=== PATIENT | female | born 1965 | race Two or more races ===

== ENCOUNTER 2018-09-17 19:02 | Emergency (ER) | payer SELFPAY ==
--- NOTE | 2018-09-17 19:46 | EDM.PDOC ---
ED HPI GENERAL MEDICAL PROBLEM - General Chief Complaint: Skin Complaint Stated Complaint: SPOKE TO NURSE Time Seen by Provider: 09/17/18 19:41 - History of Present Illness INITIAL COMMENTS - FREE TEXT/NARRATIVE: HISTORY AND PHYSICAL: History of present illness: Patient's 53-year-old female with history of urticaria presents with a concern of urticaria she has yet identified the food allergy or other allergen that may be causing this patient denies any difficulty swallowing or breathing no other complaints Review of systems: As per history of present illness and below otherwise all systems reviewed and negative. Past medical history: As per history of present illness and as reviewed below otherwise noncontributory. Surgical history: As per history of present illness and as reviewed below otherwise noncontributory. Social history: No reported history of drug or alcohol abuse. Family history: As per history of present illness and as reviewed below otherwise noncontributory. Physical exam: HEENT: Atraumatic, normocephalic, pupils reactive, negative for conjunctival pallor or scleral icterus, mucous membranes moist, throat clear, neck supple, nontender, trachea midline. Lungs: Clear to auscultation, breath sounds equal bilaterally, chest nontender. Heart: S1S2, regular, negative for clicks, rubs, or JVD. Abdomen: Soft, nondistended, nontender. Negative for masses or hepatosplenomegaly. Negative for costovertebral tenderness. Pelvis: Stable nontender. Genitourinary: Deferred. Rectal: Deferred. Extremities: Atraumatic, negative for cords or calf pain. Neurovascular unremarkable. Neuro: Awake, alert, oriented. Cranial nerves II through XII unremarkable. Cerebellum unremarkable. Motor and sensory unremarkable throughout. Exam nonfocal. Skin: Patient is urticaria noted over upper chest and upper extremities Diagnostics: None Therapeutics: Solu-Medrol 125 mg IM Impression: #1 urticaria Definitive disposition and diagnosis as appropriate pending reevaluation and review of above. - Related Data Allergies Allergy/AdvReac Type Severity Reaction Status Date / Time No Known Allergies Allergy Verified 09/17/18 19:39 Home Meds: Home Meds . [No Known Home Meds] 09/17/18 [History] ED ROS GENERAL - Review of Systems Review Of Systems: ROS reveals no pertinent complaints other than HPI. ED EXAM, SKIN/RASH Exam: See Below (See dictation) Course - Vital Signs Last Recorded V/S: Last Vital Signs Temp 36.8 C 09/17/18 19:30 Pulse 75 09/17/18 19:30 Resp 18 09/17/18 19:30 BP 145/74 H 09/17/18 19:30 Pulse Ox 96 09/17/18 19:30 Departure - Departure Time of Disposition: 19:46 Disposition: Home, Self-Care 01 Condition: Good Clinical Impression: Urticaria - Discharge Information Referrals: PCP,Unknown [Primary Care Provider] - Additional Instructions: The following information is given to patients seen in the emergency department who are being discharged to home. This information is to outline your options for follow-up care. We provide all patients seen in our emergency department with a follow-up referral. The need for follow-up, as well as the timing and circumstances, are variable depending upon the specifics of your emergency department visit. If you don't have a primary care physician on staff, we will provide you with a referral. We always advise you to contact your personal physician following an emergency department visit to inform them of the circumstance of the visit and for follow-up with them and/or the need for any referrals to a consulting specialist. The emergency department will also refer you to a specialist when appropriate. This referral assures that you have the opportunity for followup care with a specialist. All of these measure are taken in an effort to provide you with optimal care, which includes your followup. Under all circumstances we always encourage you to contact your private physician who remains a resource for coordinating your care. When calling for followup care, please make the office aware that this follow-up is from your recent emergency room visit. If for any reason you are refused follow-up, please contact the [facility] emergency department at and asked to speak to the emergency department charge nurse. Medrol as prescribed continue Benadryl as directed follow primary medical doctor as needed as discussed and return as needed as discussed
[2018-09-17] MEDS ORDERED: methylPREDNISolone Sodium Succinate 125 MG/2 ML SDV IM ONE (19:47)
== END 2018-09-17 20:05 | disposition home or self-care (01) ==
LOC: MW.ED 19:02
DX: L50.9 Urticaria, unspecified (principal)
CPT/HCPCS: 96372; 99282; J2930

== ENCOUNTER 2023-09-14 15:57 | Emergency (ER) | payer OTHER ==
[2023-09-14] MEDS: Ketorolac 30 MG/ML SDV IVPUSH ONE (16:25)
[2023-09-14] MEDS: Lisinopril 10 MG Tab PO ONE (16:26)
[2023-09-14] MEDS: Sodium Chloride 0.9% 1,000 ML IV ONE (16:26)
[2023-09-14] MEDS: Sodium Chloride 0.9% 2.5 ML Syringe FLUSH PRN (16:26)
[2023-09-14] MEDS: Sodium Chloride 0.9% 10 ML Syringe FLUSH PRN (16:27)
[2023-09-14 16:39] LABS: BASOPHILS ABSOLUTE AUTO 0.09 K/uL (0.00-0.20); BASOPHILS PERCENT AUTO 0.9 % (0.0-1.0); EOSINOPHILS ABSOLUTE AUTO 0.24 K/uL (0.00-0.45); EOSINOPHILS PERCENT AUTO 2.4 % (0.0-6.0); HEMATOCRIT 42.5 % (37.0-47.0); HEMOGLOBIN 14.8 g/dL (12.0-16.0); IMMATURE GRAN ABSOLUTE AUTO 0.02 K/uL (0.00-0.05); IMMATURE GRAN PERCENT AUTO 0.2 % (0.0-0.4); LYMPHOCYTES ABSOLUTE AUTO 3.13 K/uL (1.00-4.80); LYMPHOCYTES PERCENT AUTO 30.9 % (24.0-44.0); MEAN CORPUSCULAR HEMOGLOBIN 30.8 pg (28.0-32.0); MEAN CORPUSCULAR HGB CONC 34.8 g/dL (32.0-36.0); MEAN CORPUSCULAR VOLUME 88.5 fL (83.0-99.0); MEAN PLATELET VOLUME 10.6 fL (9.4-12.3); MONOCYTES ABSOLUTE AUTO 0.67 K/uL (0.00-0.80); MONOCYTES PERCENT AUTO 6.6 % (0.0-8.0); NEUTROPHILS ABSOLUTE AUTO 5.97 K/uL (1.80-7.70); PLATELET COUNT,PLT 312 K/uL (150-400); WHITE BLOOD CELL COUNT,WBC 10.12 K/uL (3.9-11.3)
[2023-09-14 18:01] LABS: A/G RATIO 0.9 (0.9-1.6); ALANINE AMINOTRANSFERASE,ALT 49 IU/L (14-63); ALBUMIN 3.7 g/dL (3.4-5.0); ALKALINE PHOSPHATASE 116 U/L (46-116); ASPARTATE AMNIOTRANSFERASE,AST 39 IU/L (15-37); BILIRUBIN TOTAL 0.5 mg/dL (0.2-1.0); BLOOD UREA NITROGEN,BUN 21 mg/dL (7.0-18.0); CALCIUM 9.1 mg/dL (8.5-10.1); CARBON DIOXIDE,CO2 23.1 mmol/L (21.0-32.0); CHLORIDE,CL 105 mmol/L (98-107); EST CRCL DRUG DOSING (CG) 45.12 mL/min; GLUCOSE RANDOM 119 mg/dL (74-106); POTASSIUM,K 4.1 mmol/L (3.5-5.1); PROTEIN TOTAL,TP 7.7 g/dL (6.4-8.2); SODIUM,NA 141 mmol/L (136-145); TSH ULTRASENSITIVE 1.05 uIU/mL (0.36-3.74)
[2023-09-14 18:02] LABS: ESTIMATED GFR 66 mL/min (>60)
== END 2023-09-14 18:33 | disposition home or self-care (01) ==
LOC: MW.ED 15:57
DX: I10 Essential (primary) hypertension (principal)
CPT/HCPCS: 36415; 71045; 80053; 84443; 84484; 85025; 93005; 96361; 96374; 99285; A9270; J1885; J3490; J7030; 93010; 99284

== ENCOUNTER 2023-09-18 19:55 | Emergency (ER) | payer OTHER ==
[2023-09-18] MEDS: Albuterol/Ipratropium 3.0-0.5 MG/3 ML Neb Soln NEB ONE (20:05)
[2023-09-18] MEDS: Aspirin 81 MG Tab.Chew PO ONE (20:05)
[2023-09-18] MEDS: Ondansetron 4 MG/2 ML SDV IVPUSH ONE (20:06)
[2023-09-18] MEDS: Sodium Chloride 0.9% 10 ML Syringe FLUSH PRN (20:06)
[2023-09-18] MEDS: Sodium Chloride 0.9% 2.5 ML Syringe FLUSH PRN (20:06)
[2023-09-18] MEDS: Nitroglycerin 0.4 MG Tab.SL SL PRN (20:07)
[2023-09-18 20:15] LABS: BASOPHILS ABSOLUTE AUTO 0.08 K/uL (0.00-0.20); BASOPHILS PERCENT AUTO 0.6 % (0.0-1.0); EOSINOPHILS ABSOLUTE AUTO 0.26 K/uL (0.00-0.45); EOSINOPHILS PERCENT AUTO 1.8 % (0.0-6.0); HEMATOCRIT 41.9 % (37.0-47.0); HEMOGLOBIN 14.5 g/dL (12.0-16.0); IMMATURE GRAN ABSOLUTE AUTO 0.05 K/uL (0.00-0.05); IMMATURE GRAN PERCENT AUTO 0.4 % (0.0-0.4); LYMPHOCYTES PERCENT AUTO 28.3 % (24.0-44.0); MEAN CORPUSCULAR HEMOGLOBIN 30.5 pg (28.0-32.0); MEAN CORPUSCULAR HGB CONC 34.6 g/dL (32.0-36.0); MEAN PLATELET VOLUME 11.1 fL (9.4-12.3); MONOCYTES ABSOLUTE AUTO 0.77 K/uL (0.00-0.80); MONOCYTES PERCENT AUTO 5.4 % (0.0-8.0); NEUTROPHILS ABSOLUTE AUTO 8.97 K/uL (1.80-7.70); NEUTROPHILS PERCENT AUTO 63.5 % (41.0-71.0); PLATELET COUNT,PLT 304 K/uL (150-400); RED BLOOD CELL COUNT 4.76 M/uL (4.10-5.30); WHITE BLOOD CELL COUNT,WBC 14.13 K/uL (3.9-11.3)
[2023-09-18 20:35] LABS: INR 0.95 (0.86-1.11); PTT,PARTIAL THROMBOPLSTIN TIME 25.3 SEC (23.9-30.7)
[2023-09-18 20:44] LABS: A/G RATIO 1.1 (0.9-1.6); BILIRUBIN TOTAL 0.4 mg/dL (0.2-1.0); CALCIUM 9.5 mg/dL (8.5-10.1); CARBON DIOXIDE,CO2 23.5 mmol/L (21.0-32.0); EST CRCL DRUG DOSING (CG) 45.12 mL/min; MAGNESIUM 1.9 mg/dL (1.8-2.4); POTASSIUM,K 4.5 mmol/L (3.5-5.1); PROTEIN TOTAL,TP 7.5 g/dL (6.4-8.2)
[2023-09-18] MEDS: Iopamidol 755 MG/ML 500 ML Multipack Bottle IVPUSH ONE (21:43)
[2023-09-19] MEDS: Acetaminophen 500 MG Tab PO ONE (00:20)
== END 2023-09-19 00:48 | disposition home or self-care (01) ==
LOC: MW.ED 19:55
DX: R07.89 Other chest pain (principal); I45.6 Pre-excitation syndrome; R00.2 Palpitations; I10 Essential (primary) hypertension; Z91.011 Allergy to milk products
CPT/HCPCS: 36415; 70450; 71045; 71275; 80053; 83690; 83735; 83880; 84484; 85025; 85610; 85730; 93005; 96374; 99285; A9270; J2405; J3490; Q9967; 93010; 99284; J7620-GY

== ENCOUNTER 2023-09-19 19:51 | Emergency (ER) | payer OTHER ==
[2023-09-19 21:09] LABS: BASOPHILS ABSOLUTE AUTO 0.07 K/uL (0.00-0.20); BASOPHILS PERCENT AUTO 0.6 % (0.0-1.0); EOSINOPHILS PERCENT AUTO 2.6 % (0.0-6.0); HEMATOCRIT 40.9 % (37.0-47.0); HEMOGLOBIN 14.2 g/dL (12.0-16.0); IMMATURE GRAN ABSOLUTE AUTO 0.03 K/uL (0.00-0.05); IMMATURE GRAN PERCENT AUTO 0.3 % (0.0-0.4); LYMPHOCYTES ABSOLUTE AUTO 2.92 K/uL (1.00-4.80); MEAN CORPUSCULAR HEMOGLOBIN 30.5 pg (28.0-32.0); MEAN CORPUSCULAR HGB CONC 34.7 g/dL (32.0-36.0); MEAN CORPUSCULAR VOLUME 87.8 fL (83.0-99.0); MEAN PLATELET VOLUME 11.2 fL (9.4-12.3); MONOCYTES ABSOLUTE AUTO 0.67 K/uL (0.00-0.80); MONOCYTES PERCENT AUTO 5.7 % (0.0-8.0); NEUTROPHILS ABSOLUTE AUTO 7.69 K/uL (1.80-7.70); NEUTROPHILS PERCENT AUTO 65.8 % (41.0-71.0); PLATELET COUNT,PLT 286 K/uL (150-400); RED BLOOD CELL COUNT 4.66 M/uL (4.10-5.30); WHITE BLOOD CELL COUNT,WBC 11.68 K/uL (3.9-11.3)
[2023-09-19 21:36] LABS: A/G RATIO 0.9 (0.9-1.6); ALBUMIN 3.7 g/dL (3.4-5.0); BILIRUBIN TOTAL 0.5 mg/dL (0.2-1.0); CALCIUM 9.1 mg/dL (8.5-10.1); CREATININE 0.8 mg/dL (0.6-1.0); EST CRCL DRUG DOSING (CG) 56.4 mL/min; PROTEIN TOTAL,TP 7.7 g/dL (6.4-8.2)
== END 2023-09-19 22:21 | disposition home or self-care (01) ==
LOC: MW.ED 19:51
DX: R07.89 Other chest pain (principal); I10 Essential (primary) hypertension; Z91.011 Allergy to milk products
CPT/HCPCS: 36415; 71045; 71045-26; 80053; 84484; 85025; 93005; 93010; 99282; 99285

== ENCOUNTER 2023-09-20 21:19 | Emergency (ER) | payer OTHER ==
[2023-09-20 21:55] LABS: BASOPHILS ABSOLUTE AUTO 0.08 K/uL (0.00-0.20); BASOPHILS PERCENT AUTO 0.6 % (0.0-1.0); EOSINOPHILS ABSOLUTE AUTO 0.35 K/uL (0.00-0.45); EOSINOPHILS PERCENT AUTO 2.8 % (0.0-6.0); HEMATOCRIT 41.7 % (37.0-47.0); HEMOGLOBIN 14.5 g/dL (12.0-16.0); IMMATURE GRAN ABSOLUTE AUTO 0.02 K/uL (0.00-0.05); IMMATURE GRAN PERCENT AUTO 0.2 % (0.0-0.4); LYMPHOCYTES ABSOLUTE AUTO 3.84 K/uL (1.00-4.80); LYMPHOCYTES PERCENT AUTO 30.9 % (24.0-44.0); MEAN CORPUSCULAR HEMOGLOBIN 30.6 pg (28.0-32.0); MEAN CORPUSCULAR HGB CONC 34.8 g/dL (32.0-36.0); MEAN PLATELET VOLUME 11.1 fL (9.4-12.3); MONOCYTES ABSOLUTE AUTO 0.73 K/uL (0.00-0.80); MONOCYTES PERCENT AUTO 5.9 % (0.0-8.0); NEUTROPHILS PERCENT AUTO 59.6 % (41.0-71.0); PLATELET COUNT,PLT 301 K/uL (150-400); RED BLOOD CELL COUNT 4.74 M/uL (4.10-5.30); WHITE BLOOD CELL COUNT,WBC 12.42 K/uL (3.9-11.3)
[2023-09-20] MEDS: Albuterol 0.083% 2.5 MG/3 ML Neb Soln NEB ONE (22:06)
[2023-09-20 23:11] LABS: A/G RATIO 0.9 (0.9-1.6); ALBUMIN 3.8 g/dL (3.4-5.0); BILIRUBIN TOTAL 0.3 mg/dL (0.2-1.0); CALCIUM 9.2 mg/dL (8.5-10.1); CARBON DIOXIDE,CO2 22.1 mmol/L (21.0-32.0); CREATININE 1.5 mg/dL (0.6-1.0); EST CRCL DRUG DOSING (CG) 30.08 mL/min; POTASSIUM,K 4.2 mmol/L (3.5-5.1); PROTEIN TOTAL,TP 7.8 g/dL (6.4-8.2)
== END 2023-09-20 23:41 | disposition home or self-care (01) ==
LOC: MW.ED 21:19
DX: N17.9 Acute kidney failure, unspecified (principal); I10 Essential (primary) hypertension; Z91.011 Allergy to milk products; Z86.19 Personal history of other infectious and parasitic diseases; Z75.8 Other problems related to medical facilities and other health care; Z79.899 Other long term (current) drug therapy
CPT/HCPCS: 36415; 71046; 71046-26; 80053; 80061; 83036; 83880; 84443; 84484; 85025; 93005; 93010; 99283; 99285; J7620-GY

== ENCOUNTER 2023-09-26 16:23 | Emergency (ER) | payer OTHER ==
[2023-09-26 17:09] LABS: BASOPHILS PERCENT AUTO 0.7 % (0.0-1.0); EOSINOPHILS PERCENT AUTO 1.5 % (0.0-6.0); HEMATOCRIT 39.5 % (37.0-47.0); HEMOGLOBIN 14.3 g/dL (12.0-16.0); IMMATURE GRAN ABSOLUTE AUTO 0.03 K/uL (0.00-0.05); IMMATURE GRAN PERCENT AUTO 0.2 % (0.0-0.4); LYMPHOCYTES ABSOLUTE AUTO 2.73 K/uL (1.00-4.80); LYMPHOCYTES PERCENT AUTO 20.4 % (24.0-44.0); MEAN CORPUSCULAR HGB CONC 36.2 g/dL (32.0-36.0); MEAN CORPUSCULAR VOLUME 85.5 fL (83.0-99.0); MONOCYTES ABSOLUTE AUTO 0.73 K/uL (0.00-0.80); MONOCYTES PERCENT AUTO 5.4 % (0.0-8.0); NEUTROPHILS ABSOLUTE AUTO 9.62 K/uL (1.80-7.70); NEUTROPHILS PERCENT AUTO 71.8 % (41.0-71.0); PLATELET COUNT,PLT 313 K/uL (150-400); RED BLOOD CELL COUNT 4.62 M/uL (4.10-5.30); WHITE BLOOD CELL COUNT,WBC 13.41 K/uL (3.9-11.3)
[2023-09-26 17:27] LABS: INR 0.98 (0.86-1.11); PTT,PARTIAL THROMBOPLSTIN TIME 28.2 SEC (23.9-30.7)
[2023-09-26] MEDS: Sodium Chloride 0.9% 1,000 ML IV STA (17:33)
[2023-09-26] MEDS: Sodium Chloride 0.9% 2.5 ML Syringe FLUSH PRN (17:33)
[2023-09-26] MEDS: Sodium Chloride 0.9% 10 ML Syringe FLUSH PRN (17:34)
[2023-09-26 17:38] LABS: POTASSIUM,K 3.2 mmol/L (3.5-5.1); TSH ULTRASENSITIVE 0.86 uIU/mL (0.36-3.74)
[2023-09-26 17:46] LABS: CARBON DIOXIDE,CO2 25.1 mmol/L (21.0-32.0)
[2023-09-26 17:47] LABS: A/G RATIO 0.9 (0.9-1.6); ALBUMIN 3.8 g/dL (3.4-5.0); BILIRUBIN TOTAL 0.5 mg/dL (0.2-1.0); CALCIUM 9.2 mg/dL (8.5-10.1); CREATININE 1.3 mg/dL (0.6-1.0); EST CRCL DRUG DOSING (CG) 34.71 mL/min; MAGNESIUM 1.5 mg/dL (1.8-2.4); PROTEIN TOTAL,TP 7.9 g/dL (6.4-8.2)
[2023-09-26] MEDS: Potassium Chloride 20 MEQ Tab.ER PO STA (18:02)
[2023-09-26] MEDS: Magnesium Sulfate/Water 2 GM in Premix Bag 1 BAG IV STA (18:04)
[2023-09-26] MEDS: cefTRIAXone 1 GM in Sodium Chloride 0.9% 50 ML IV STA (19:36)
== END 2023-09-26 19:51 | disposition home or self-care (01) ==
LOC: MW.ED 16:23
DX: I45.6 Pre-excitation syndrome (principal); E87.6 Hypokalemia; E83.42 Hypomagnesemia; N30.00 Acute cystitis without hematuria; I10 Essential (primary) hypertension; Z79.84 Long term (current) use of oral hypoglycemic drugs; Z79.899 Other long term (current) drug therapy; Z91.011 Allergy to milk products
CPT/HCPCS: 36415; 71046; 80053; 83690; 83735; 84443; 84484; 85025; 85610; 85730; 93005; 96361; 96365; 96367; 99285; A9270; J0696; J3475; J3490; J7030; 93010; 99283

== ENCOUNTER 2023-10-02 20:08 | Emergency (ER) | payer OTHER ==
[2023-10-02] MEDS: cloNIDine 0.1 MG Tab PO ONE (20:31)
[2023-10-02] MEDS: Acetaminophen 500 MG Tab PO ONE (20:31)
[2023-10-02 20:33] LABS: BASOPHILS ABSOLUTE AUTO 0.09 K/uL (0.00-0.20); BASOPHILS PERCENT AUTO 0.8 % (0.0-1.0); EOSINOPHILS ABSOLUTE AUTO 0.23 K/uL (0.00-0.45); EOSINOPHILS PERCENT AUTO 2.2 % (0.0-6.0); HEMATOCRIT 36.9 % (37.0-47.0); HEMOGLOBIN 13.1 g/dL (12.0-16.0); IMMATURE GRAN ABSOLUTE AUTO 0.02 K/uL (0.00-0.05); IMMATURE GRAN PERCENT AUTO 0.2 % (0.0-0.4); LYMPHOCYTES ABSOLUTE AUTO 3.02 K/uL (1.00-4.80); LYMPHOCYTES PERCENT AUTO 28.5 % (24.0-44.0); MEAN CORPUSCULAR HEMOGLOBIN 30.8 pg (28.0-32.0); MEAN CORPUSCULAR HGB CONC 35.5 g/dL (32.0-36.0); MEAN CORPUSCULAR VOLUME 86.6 fL (83.0-99.0); MEAN PLATELET VOLUME 10.8 fL (9.4-12.3); MONOCYTES ABSOLUTE AUTO 0.74 K/uL (0.00-0.80); NEUTROPHILS PERCENT AUTO 61.3 % (41.0-71.0); PLATELET COUNT,PLT 282 K/uL (150-400); RED BLOOD CELL COUNT 4.26 M/uL (4.10-5.30)
[2023-10-02 20:59] LABS: ALANINE AMINOTRANSFERASE,ALT 72 IU/L (14-63); ALBUMIN 3.7 g/dL (3.4-5.0); ALKALINE PHOSPHATASE 101 U/L (46-116); ASPARTATE AMNIOTRANSFERASE,AST 37 IU/L (15-37); BILIRUBIN TOTAL 0.3 mg/dL (0.2-1.0); BLOOD UREA NITROGEN,BUN 14 mg/dL (7.0-18.0); CALCIUM 9.2 mg/dL (8.5-10.1); CARBON DIOXIDE,CO2 26.9 mmol/L (21.0-32.0); CHLORIDE,CL 96 mmol/L (98-107); EST CRCL DRUG DOSING (CG) 49.68 mL/min; GLUCOSE RANDOM 106 mg/dL (74-106); POTASSIUM,K 3.5 mmol/L (3.5-5.1); PROTEIN TOTAL,TP 7.3 g/dL (6.4-8.2); SODIUM,NA 134 mmol/L (136-145)
[2023-10-02 21:00] LABS: ESTIMATED GFR 66 mL/min (>60)
== END 2023-10-02 21:36 | disposition home or self-care (01) ==
LOC: MW.ED 20:08
DX: I10 Essential (primary) hypertension (principal); Z91.011 Allergy to milk products; Z79.84 Long term (current) use of oral hypoglycemic drugs; Z79.899 Other long term (current) drug therapy; Z75.8 Other problems related to medical facilities and other health care
CPT/HCPCS: 36415; 80053; 84484; 85025; 99283; A9270; 93005; 93010

== ENCOUNTER 2023-10-17 17:42 | Emergency (ER) | payer OTHER ==
[2023-10-17] MEDS: Acetaminophen 500 MG Tab PO ONE (18:31)
[2023-10-17] MEDS: cloNIDine 0.1 MG Tab PO ONE (18:32)
[2023-10-17 18:51] LABS: BASOPHILS ABSOLUTE AUTO 0.09 K/uL (0.00-0.20); EOSINOPHILS PERCENT AUTO 2.2 % (0.0-6.0); HEMATOCRIT 37.2 % (37.0-47.0); HEMOGLOBIN 12.8 g/dL (12.0-16.0); IMMATURE GRAN ABSOLUTE AUTO 0.01 K/uL (0.00-0.05); IMMATURE GRAN PERCENT AUTO 0.1 % (0.0-0.4); LYMPHOCYTES ABSOLUTE AUTO 2.52 K/uL (1.00-4.80); LYMPHOCYTES PERCENT AUTO 27.6 % (24.0-44.0); MEAN CORPUSCULAR HEMOGLOBIN 30.5 pg (28.0-32.0); MEAN CORPUSCULAR HGB CONC 34.4 g/dL (32.0-36.0); MEAN CORPUSCULAR VOLUME 88.6 fL (83.0-99.0); MEAN PLATELET VOLUME 11.2 fL (9.4-12.3); MONOCYTES ABSOLUTE AUTO 0.58 K/uL (0.00-0.80); MONOCYTES PERCENT AUTO 6.4 % (0.0-8.0); NEUTROPHILS ABSOLUTE AUTO 5.72 K/uL (1.80-7.70); NEUTROPHILS PERCENT AUTO 62.7 % (41.0-71.0); PLATELET COUNT,PLT 258 K/uL (150-400); WHITE BLOOD CELL COUNT,WBC 9.12 K/uL (3.9-11.3)
[2023-10-17 19:16] LABS: A/G RATIO 1.1 (0.9-1.6); ALBUMIN 3.7 g/dL (3.4-5.0); BILIRUBIN TOTAL 0.4 mg/dL (0.2-1.0); CALCIUM 9.1 mg/dL (8.5-10.1); CARBON DIOXIDE,CO2 25.2 mmol/L (21.0-32.0); CREATININE 0.8 mg/dL (0.6-1.0); EST CRCL DRUG DOSING (CG) 59.25 mL/min; POTASSIUM,K 3.9 mmol/L (3.5-5.1); PROTEIN TOTAL,TP 7.2 g/dL (6.4-8.2)
== END 2023-10-17 20:58 | disposition home or self-care (01) ==
LOC: MW.ED 17:42
DX: I10 Essential (primary) hypertension (principal); E11.9 Type 2 diabetes mellitus without complications; Z91.011 Allergy to milk products; Z79.51 Long term (current) use of inhaled steroids; Z79.84 Long term (current) use of oral hypoglycemic drugs; Z79.899 Other long term (current) drug therapy; Z75.8 Other problems related to medical facilities and other health care
CPT/HCPCS: 36415; 80053; 84484; 85025; 99284; A9270; 93010; 99283

== ENCOUNTER 2023-10-18 20:08 | Emergency (ER) | payer OTHER ==
[2023-10-18 20:24] LABS: BASOPHILS ABSOLUTE AUTO 0.09 K/uL (0.00-0.20); EOSINOPHILS ABSOLUTE AUTO 0.26 K/uL (0.00-0.45); EOSINOPHILS PERCENT AUTO 2.8 % (0.0-6.0); HEMATOCRIT 37.9 % (37.0-47.0); IMMATURE GRAN ABSOLUTE AUTO 0.01 K/uL (0.00-0.05); IMMATURE GRAN PERCENT AUTO 0.1 % (0.0-0.4); LYMPHOCYTES ABSOLUTE AUTO 3.61 K/uL (1.00-4.80); LYMPHOCYTES PERCENT AUTO 39.4 % (24.0-44.0); MEAN CORPUSCULAR HEMOGLOBIN 30.8 pg (28.0-32.0); MEAN CORPUSCULAR HGB CONC 34.3 g/dL (32.0-36.0); MEAN CORPUSCULAR VOLUME 89.8 fL (83.0-99.0); MEAN PLATELET VOLUME 11.4 fL (9.4-12.3); MONOCYTES ABSOLUTE AUTO 0.67 K/uL (0.00-0.80); MONOCYTES PERCENT AUTO 7.3 % (0.0-8.0); NEUTROPHILS ABSOLUTE AUTO 4.53 K/uL (1.80-7.70); NEUTROPHILS PERCENT AUTO 49.4 % (41.0-71.0); PLATELET COUNT,PLT 263 K/uL (150-400); RED BLOOD CELL COUNT 4.22 M/uL (4.10-5.30); WHITE BLOOD CELL COUNT,WBC 9.17 K/uL (3.9-11.3)
[2023-10-18] MEDS: Sodium Chloride 0.9% 2.5 ML Syringe FLUSH PRN (20:32)
[2023-10-18] MEDS: diphenhydrAMINE 50 MG/ML SDV IVPUSH ONE (20:32)
[2023-10-18] MEDS: Sodium Chloride 0.9% 500 ML IV ONE (20:32)
[2023-10-18] MEDS: Sodium Chloride 0.9% 10 ML Syringe FLUSH PRN (20:32)
[2023-10-18] MEDS: Metoclopramide 10 MG/2 ML SDV IVPUSH ONE (20:32)
[2023-10-18 20:47] LABS: A/G RATIO 1.1 (0.9-1.6); ALBUMIN 3.7 g/dL (3.4-5.0); BILIRUBIN TOTAL 0.2 mg/dL (0.2-1.0); CALCIUM 9.3 mg/dL (8.5-10.1); CARBON DIOXIDE,CO2 27.7 mmol/L (21.0-32.0); EST CRCL DRUG DOSING (CG) 45.12 mL/min; MAGNESIUM 1.8 mg/dL (1.8-2.4); PROTEIN TOTAL,TP 7.2 g/dL (6.4-8.2)
== END 2023-10-18 21:59 | disposition home or self-care (01) ==
LOC: MW.ED 20:08
DX: I10 Essential (primary) hypertension (principal); Z91.011 Allergy to milk products; Z86.16 Personal history of COVID-19; Z86.19 Personal history of other infectious and parasitic diseases; Z79.899 Other long term (current) drug therapy
CPT/HCPCS: 36415; 80053; 83690; 83735; 84484; 85025; 93005; 96374; 96375; 99285; J1200; J2765; J3490; J7040

== ENCOUNTER 2023-11-11 13:30 | Emergency (ER) | payer OTHER ==
[2023-11-11] MEDS: Sodium Chloride 0.9% 1,000 ML IV ONE (14:29)
[2023-11-11 14:37] LABS: BASOPHILS ABSOLUTE AUTO 0.07 K/uL (0.00-0.20); BASOPHILS PERCENT AUTO 0.8 % (0.0-1.0); EOSINOPHILS ABSOLUTE AUTO 0.19 K/uL (0.00-0.45); EOSINOPHILS PERCENT AUTO 2.2 % (0.0-6.0); HEMOGLOBIN 13.5 g/dL (12.0-16.0); IMMATURE GRAN ABSOLUTE AUTO 0.01 K/uL (0.00-0.05); IMMATURE GRAN PERCENT AUTO 0.1 % (0.0-0.4); LYMPHOCYTES ABSOLUTE AUTO 2.42 K/uL (1.00-4.80); MEAN CORPUSCULAR HEMOGLOBIN 31.1 pg (28.0-32.0); MEAN CORPUSCULAR HGB CONC 34.6 g/dL (32.0-36.0); MEAN CORPUSCULAR VOLUME 89.9 fL (83.0-99.0); MEAN PLATELET VOLUME 11.5 fL (9.4-12.3); MONOCYTES ABSOLUTE AUTO 0.52 K/uL (0.00-0.80); NEUTROPHILS ABSOLUTE AUTO 5.42 K/uL (1.80-7.70); NEUTROPHILS PERCENT AUTO 62.9 % (41.0-71.0); PLATELET COUNT,PLT 276 K/uL (150-400); RED BLOOD CELL COUNT 4.34 M/uL (4.10-5.30); WHITE BLOOD CELL COUNT,WBC 8.63 K/uL (3.9-11.3)
[2023-11-11 14:59] LABS: A/G RATIO 0.9 (0.9-1.6); ALBUMIN 3.5 g/dL (3.4-5.0); BILIRUBIN TOTAL 0.2 mg/dL (0.2-1.0); CALCIUM 9.4 mg/dL (8.5-10.1); CARBON DIOXIDE,CO2 24.6 mmol/L (21.0-32.0); CREATININE 0.9 mg/dL (0.6-1.0); EST CRCL DRUG DOSING (CG) 52.67 mL/min; MAGNESIUM 1.8 mg/dL (1.8-2.4); POTASSIUM,K 4.3 mmol/L (3.5-5.1); PROTEIN TOTAL,TP 7.3 g/dL (6.4-8.2)
== END 2023-11-11 15:21 | disposition home or self-care (01) ==
LOC: MW.ED 13:30
DX: E11.649 Type 2 diabetes mellitus with hypoglycemia without coma (principal); I10 Essential (primary) hypertension; Z91.011 Allergy to milk products; Z79.84 Long term (current) use of oral hypoglycemic drugs; Z79.899 Other long term (current) drug therapy; Z86.16 Personal history of COVID-19
CPT/HCPCS: 36415; 80053; 82947; 83735; 85025; 96360; 99284; J7030; 99282

== ENCOUNTER 2024-02-25 20:15 | Emergency (ER) | payer OTHER ==
[2024-02-25 20:57] LABS: BASOPHILS ABSOLUTE AUTO 0.07 K/uL (0.00-0.20); BASOPHILS PERCENT AUTO 0.9 % (0.0-1.0); EOSINOPHILS ABSOLUTE AUTO 0.21 K/uL (0.00-0.45); EOSINOPHILS PERCENT AUTO 2.6 % (0.0-6.0); HEMATOCRIT 38.9 % (37.0-47.0); HEMOGLOBIN 13.4 g/dL (12.0-16.0); IMMATURE GRAN ABSOLUTE AUTO 0.01 K/uL (0.00-0.05); IMMATURE GRAN PERCENT AUTO 0.1 % (0.0-0.4); LYMPHOCYTES ABSOLUTE AUTO 3.26 K/uL (1.00-4.80); LYMPHOCYTES PERCENT AUTO 40.4 % (24.0-44.0); MEAN CORPUSCULAR HEMOGLOBIN 30.6 pg (28.0-32.0); MEAN CORPUSCULAR HGB CONC 34.4 g/dL (32.0-36.0); MEAN CORPUSCULAR VOLUME 88.8 fL (83.0-99.0); MEAN PLATELET VOLUME 10.4 fL (9.4-12.3); MONOCYTES ABSOLUTE AUTO 0.41 K/uL (0.00-0.80); MONOCYTES PERCENT AUTO 5.1 % (0.0-8.0); NEUTROPHILS ABSOLUTE AUTO 4.11 K/uL (1.80-7.70); NEUTROPHILS PERCENT AUTO 50.9 % (41.0-71.0); PLATELET COUNT,PLT 280 K/uL (150-400); RED BLOOD CELL COUNT 4.38 M/uL (4.10-5.30); WHITE BLOOD CELL COUNT,WBC 8.07 K/uL (3.9-11.3)
[2024-02-25] MEDS: Sodium Chloride 0.9% 1,000 ML IV ONE (20:58)
[2024-02-25 21:27] LABS: ALANINE AMINOTRANSFERASE,ALT 25 IU/L (14-63); ALBUMIN 3.6 g/dL (3.4-5.0); ALKALINE PHOSPHATASE 94 U/L (46-116); ASPARTATE AMNIOTRANSFERASE,AST 4 IU/L (15-37); BILIRUBIN TOTAL 0.4 mg/dL (0.2-1.0); BLOOD UREA NITROGEN,BUN 21 mg/dL (7.0-18.0); CALCIUM 8.9 mg/dL (8.5-10.1); CARBON DIOXIDE,CO2 27.6 mmol/L (21.0-32.0); CHLORIDE,CL 102 mmol/L (98-107); EST CRCL DRUG DOSING (CG) 55.85 mL/min; GLUCOSE RANDOM 108 mg/dL (74-106); POTASSIUM,K 3.9 mmol/L (3.5-5.1); PROTEIN TOTAL,TP 7.3 g/dL (6.4-8.2); SODIUM,NA 138 mmol/L (136-145); TSH ULTRASENSITIVE 2.46 uIU/mL (0.36-3.74)
[2024-02-25 21:30] LABS: ESTIMATED GFR 66 mL/min (>60)
== END 2024-02-25 22:08 | disposition home or self-care (01) ==
LOC: MW.ED 20:15
DX: I45.6 Pre-excitation syndrome (principal); I10 Essential (primary) hypertension; E11.9 Type 2 diabetes mellitus without complications; Z79.84 Long term (current) use of oral hypoglycemic drugs; Z79.899 Other long term (current) drug therapy; Z91.011 Allergy to milk products; Z75.8 Other problems related to medical facilities and other health care
CPT/HCPCS: 36415; 71045; 80053; 84443; 84484; 85025; 93005; 96360; 99285; J7030; 93010

== ENCOUNTER 2024-02-26 18:08 | Emergency (ER) | payer OTHER ==
[2024-02-26] MEDS: Acetaminophen 325 MG Tab PO ONE (18:43)
[2024-02-26 18:59] LABS: ALANINE AMINOTRANSFERASE,ALT 26 IU/L (14-63); ALBUMIN 3.5 g/dL (3.4-5.0); ALKALINE PHOSPHATASE 92 U/L (46-116); ASPARTATE AMNIOTRANSFERASE,AST 19 IU/L (15-37); BILIRUBIN TOTAL 0.4 mg/dL (0.2-1.0); BLOOD UREA NITROGEN,BUN 16 mg/dL (7.0-18.0); CALCIUM 9.3 mg/dL (8.5-10.1); CARBON DIOXIDE,CO2 27.6 mmol/L (21.0-32.0); CHLORIDE,CL 103 mmol/L (98-107); CREATININE 0.8 mg/dL (0.6-1.0); EST CRCL DRUG DOSING (CG) 55.73 mL/min; GLUCOSE RANDOM 109 mg/dL (74-106); POTASSIUM,K 3.8 mmol/L (3.5-5.1); PROTEIN TOTAL,TP 7.1 g/dL (6.4-8.2); SODIUM,NA 140 mmol/L (136-145)
[2024-02-26 19:00] LABS: ESTIMATED GFR 86 mL/min (>60)
== END 2024-02-26 19:57 | disposition home or self-care (01) ==
LOC: MW.ED 18:08
DX: I10 Essential (primary) hypertension (principal); E11.9 Type 2 diabetes mellitus without complications; Z79.899 Other long term (current) drug therapy; Z91.011 Allergy to milk products; Z75.8 Other problems related to medical facilities and other health care; Z79.84 Long term (current) use of oral hypoglycemic drugs
CPT/HCPCS: 36415; 80053; 83735; 84484; 93005; 99284; A9270

== ENCOUNTER 2024-02-28 13:41 | Emergency (ER) | payer OTHER ==
[2024-02-28 14:35] LABS: HEMOGLOBIN 14.2 g/dL (12.0-16.0); MEAN CORPUSCULAR HEMOGLOBIN 30.1 pg (28.0-32.0); MEAN CORPUSCULAR HGB CONC 33.8 g/dL (32.0-36.0); MEAN CORPUSCULAR VOLUME 89.2 fL (83.0-99.0); MEAN PLATELET VOLUME 11.6 fL (9.4-12.3); PLATELET COUNT,PLT 279 K/uL (150-400); RED BLOOD CELL COUNT 4.71 M/uL (4.10-5.30); WHITE BLOOD CELL COUNT,WBC 10.33 K/uL (3.9-11.3)
[2024-02-28 14:49] LABS: ALBUMIN 3.9 g/dL (3.4-5.0); BILIRUBIN TOTAL 0.4 mg/dL (0.2-1.0); CALCIUM 9.3 mg/dL (8.5-10.1); CARBON DIOXIDE,CO2 24.3 mmol/L (21.0-32.0); CREATININE 1.1 mg/dL (0.6-1.0); EST CRCL DRUG DOSING (CG) 40.53 mL/min; POTASSIUM,K 4.2 mmol/L (3.5-5.1); PROTEIN TOTAL,TP 7.9 g/dL (6.4-8.2)
[2024-02-28 14:56] LABS: EOSINOPHILS PERCENT MAN 1 % (0-6); LYMPHOCYTES ABSOLUTE MAN 3.31 K/uL (1.00-4.80); LYMPHOCYTES PERCENT MAN 32 % (24-44); MONOCYTES ABSOLUTE MAN 0.31 K/uL (0.00-0.80); MONOCYTES PERCENT MAN 3 % (0-8); SEG NEUTROPHILS ABSOLUTE MAN 6.61 K/uL (1.80-7.70); SEG NEUTROPHILS PERCENT MAN 64 % (41-71)
== END 2024-02-28 15:42 | disposition home or self-care (01) ==
LOC: MW.ED 13:41
DX: I95.2 Hypotension due to drugs (principal); R42 Dizziness and giddiness; T46.5X5A Adverse effect of other antihypertensive drugs, initial encounter; E11.9 Type 2 diabetes mellitus without complications; Z75.8 Other problems related to medical facilities and other health care; Z91.011 Allergy to milk products; Z79.899 Other long term (current) drug therapy
CPT/HCPCS: 36415; 71045; 71045-26; 80053; 84484; 85007; 85027; 93005; 93010; 99283; 99284; 99285

== ENCOUNTER 2024-03-26 21:58 | Emergency (ER) | payer OTHER | END 2024-03-26 23:59 | disposition other institution (70) | LOC: MW.ED 21:58 | DX: S30.1XXA Contusion of abdominal wall, initial encounter (principal); I10 Essential (primary) hypertension; E11.9 Type 2 diabetes mellitus without complications; Z79.899 Other long term (current) drug therapy; Z91.011 Allergy to milk products; Z75.8 Other problems related to medical facilities and other health care; X58.XXXA Exposure to other specified factors, initial encounter | CPT/HCPCS: 99283 ==

== ENCOUNTER 2024-06-10 12:28 | Emergency (ER) | payer OTHER ==
[2024-06-10] MEDS ORDERED: Sodium Chloride 0.9% 2.5 ML Syringe FLUSH PRN (12:46)
[2024-06-10] MEDS ORDERED: Sodium Chloride 0.9% 10 ML Syringe FLUSH PRN (12:46)
[2024-06-10 13:10] LABS: BASOPHILS ABSOLUTE AUTO 0.06 K/uL (0.00-0.20); BASOPHILS PERCENT AUTO 0.7 % (0.0-1.0); EOSINOPHILS ABSOLUTE AUTO 0.16 K/uL (0.00-0.45); EOSINOPHILS PERCENT AUTO 1.8 % (0.0-6.0); HEMATOCRIT 40.2 % (37.0-47.0); HEMOGLOBIN 13.9 g/dL (12.0-16.0); IMMATURE GRAN ABSOLUTE AUTO 0.01 K/uL (0.00-0.05); IMMATURE GRAN PERCENT AUTO 0.1 % (0.0-0.4); LYMPHOCYTES ABSOLUTE AUTO 2.62 K/uL (1.00-4.80); LYMPHOCYTES PERCENT AUTO 29.9 % (24.0-44.0); MEAN CORPUSCULAR HEMOGLOBIN 31.1 pg (28.0-32.0); MEAN CORPUSCULAR HGB CONC 34.6 g/dL (32.0-36.0); MEAN CORPUSCULAR VOLUME 89.9 fL (83.0-99.0); MEAN PLATELET VOLUME 11.2 fL (9.4-12.3); MONOCYTES ABSOLUTE AUTO 0.46 K/uL (0.00-0.80); MONOCYTES PERCENT AUTO 5.3 % (0.0-8.0); NEUTROPHILS ABSOLUTE AUTO 5.44 K/uL (1.80-7.70); NEUTROPHILS PERCENT AUTO 62.2 % (41.0-71.0); PLATELET COUNT,PLT 222 K/uL (150-400); RED BLOOD CELL COUNT 4.47 M/uL (4.10-5.30); WHITE BLOOD CELL COUNT,WBC 8.75 K/uL (3.9-11.3)
[2024-06-10 13:31] LABS: APPEARANCE,URINE CLEAR; BILIRUBIN,URINE NEGATIVE (NEGATIVE); COLOR,URINE YELLOW; GLUCOSE,URINE NEGATIVE (NEGATIVE); KETONES,URINE NEGATIVE (NEGATIVE); LEUKOCYTE ESTERASE,URINE TRACE (NEGATIVE); NITRITE,URINE NEGATIVE (NEGATIVE); OCCULT BLOOD,URINE NEGATIVE (NEGATIVE); PROTEIN,URINE NEGATIVE (NEGATIVE); UROBILINOGEN,URINE 0.2 EU/dL (<2.0)
[2024-06-10 13:32] LABS: A/G RATIO 0.9 (0.9-1.6); ALANINE AMINOTRANSFERASE,ALT 32 IU/L (14-63); ALBUMIN 3.6 g/dL (3.4-5.0); ALKALINE PHOSPHATASE 104 U/L (46-116); ASPARTATE AMNIOTRANSFERASE,AST 33 IU/L (15-37); BILIRUBIN TOTAL 0.4 mg/dL (0.2-1.0); BLOOD UREA NITROGEN,BUN 29 mg/dL (7.0-18.0); CALCIUM 8.9 mg/dL (8.5-10.1); CHLORIDE,CL 103 mmol/L (98-107); CREATININE 0.8 mg/dL (0.6-1.0); EST CRCL DRUG DOSING (CG) 58.55 mL/min; GLUCOSE RANDOM 155 mg/dL (74-106); MAGNESIUM 1.8 mg/dL (1.8-2.4); POTASSIUM,K 4.7 mmol/L (3.5-5.1); PROTEIN TOTAL,TP 7.5 g/dL (6.4-8.2); SODIUM,NA 140 mmol/L (136-145)
[2024-06-10 13:33] LABS: ESTIMATED GFR 86 mL/min (>60)
[2024-06-10] MEDS: Sodium Chloride 0.9% 1,000 ML IV STA (13:37)
[2024-06-10 13:38] LABS: EPITHELIAL CELLS,URINE RARE (NONE-FEW); RBC,URINE 0-1 (0-2/HPF); WBC,URINE 0-2 (0-5/HPF)
[2024-06-10 13:39] LABS: BACTERIA,URINE FEW (NEGATIVE)
[2024-06-10] MEDS: Acetaminophen 500 MG Tab PO ONE (14:52)
== END 2024-06-10 14:56 | disposition home or self-care (01) ==
LOC: MW.ED 12:28
DX: I95.9 Hypotension, unspecified (principal); R53.1 Weakness; R42 Dizziness and giddiness; I10 Essential (primary) hypertension; E11.9 Type 2 diabetes mellitus without complications; Z91.011 Allergy to milk products; Z79.899 Other long term (current) drug therapy; Z75.8 Other problems related to medical facilities and other health care
CPT/HCPCS: 36415; 80053; 81001; 83605; 83735; 84484; 85025; 93005; 96360; 99285; A9270; J7030; 93010

== ENCOUNTER 2024-06-13 11:15 | Emergency (ER) | payer OTHER ==
[2024-06-13 11:43] LABS: BASOPHILS ABSOLUTE AUTO 0.05 K/uL (0.00-0.20); BASOPHILS PERCENT AUTO 0.6 % (0.0-1.0); EOSINOPHILS ABSOLUTE AUTO 0.13 K/uL (0.00-0.45); EOSINOPHILS PERCENT AUTO 1.7 % (0.0-6.0); HEMATOCRIT 41.9 % (37.0-47.0); IMMATURE GRAN ABSOLUTE AUTO 0.01 K/uL (0.00-0.05); IMMATURE GRAN PERCENT AUTO 0.1 % (0.0-0.4); LYMPHOCYTES ABSOLUTE AUTO 2.38 K/uL (1.00-4.80); LYMPHOCYTES PERCENT AUTO 30.8 % (24.0-44.0); MEAN CORPUSCULAR HEMOGLOBIN 30.6 pg (28.0-32.0); MEAN CORPUSCULAR HGB CONC 33.4 g/dL (32.0-36.0); MEAN CORPUSCULAR VOLUME 91.7 fL (83.0-99.0); MEAN PLATELET VOLUME 11.1 fL (9.4-12.3); MONOCYTES ABSOLUTE AUTO 0.46 K/uL (0.00-0.80); NEUTROPHILS ABSOLUTE AUTO 4.69 K/uL (1.80-7.70); NEUTROPHILS PERCENT AUTO 60.8 % (41.0-71.0); PLATELET COUNT,PLT 274 K/uL (150-400); RED BLOOD CELL COUNT 4.57 M/uL (4.10-5.30); WHITE BLOOD CELL COUNT,WBC 7.72 K/uL (3.9-11.3)
[2024-06-13 12:51] LABS: A/G RATIO 0.9 (0.9-1.6); ALBUMIN 3.7 g/dL (3.4-5.0); BILIRUBIN TOTAL 0.4 mg/dL (0.2-1.0); CALCIUM 9.2 mg/dL (8.5-10.1); CARBON DIOXIDE,CO2 29.3 mmol/L (21.0-32.0); CREATININE 0.8 mg/dL (0.6-1.0); EST CRCL DRUG DOSING (CG) 58.55 mL/min; POTASSIUM,K 4.5 mmol/L (3.5-5.1); PROTEIN TOTAL,TP 7.6 g/dL (6.4-8.2)
== END 2024-06-13 13:30 | disposition home or self-care (01) ==
LOC: MW.ED 11:15
DX: R42 Dizziness and giddiness (principal); I10 Essential (primary) hypertension; E11.9 Type 2 diabetes mellitus without complications; Z91.011 Allergy to milk products; Z79.899 Other long term (current) drug therapy; Z75.8 Other problems related to medical facilities and other health care
CPT/HCPCS: 36415; 71046; 71046-26; 80053; 83690; 83735; 83880; 84484; 85025; 85379; 87428-QW; 93005; 93010; 99284; 99285

== ENCOUNTER 2024-06-22 18:02 | Emergency (ER) | payer OTHER ==
[2024-06-22] MEDS: Sodium Chloride 0.9% 1,000 ML IV ONE (18:20)
[2024-06-22 18:37] LABS: BASOPHILS ABSOLUTE AUTO 0.07 K/uL (0.00-0.20); BASOPHILS PERCENT AUTO 0.8 % (0.0-1.0); EOSINOPHILS ABSOLUTE AUTO 0.11 K/uL (0.00-0.45); EOSINOPHILS PERCENT AUTO 1.3 % (0.0-6.0); HEMATOCRIT 37.4 % (37.0-47.0); HEMOGLOBIN 12.9 g/dL (12.0-16.0); IMMATURE GRAN ABSOLUTE AUTO 0.01 K/uL (0.00-0.05); IMMATURE GRAN PERCENT AUTO 0.1 % (0.0-0.4); LYMPHOCYTES PERCENT AUTO 32.6 % (24.0-44.0); MEAN CORPUSCULAR HEMOGLOBIN 30.9 pg (28.0-32.0); MEAN CORPUSCULAR HGB CONC 34.5 g/dL (32.0-36.0); MEAN CORPUSCULAR VOLUME 89.5 fL (83.0-99.0); MEAN PLATELET VOLUME 10.7 fL (9.4-12.3); MONOCYTES ABSOLUTE AUTO 0.49 K/uL (0.00-0.80); MONOCYTES PERCENT AUTO 5.7 % (0.0-8.0); NEUTROPHILS PERCENT AUTO 59.5 % (41.0-71.0); PLATELET COUNT,PLT 245 K/uL (150-400); RED BLOOD CELL COUNT 4.18 M/uL (4.10-5.30); WHITE BLOOD CELL COUNT,WBC 8.58 K/uL (3.9-11.3)
[2024-06-22] MEDS: Losartan 50 MG Tab PO ONE (19:03)
[2024-06-22] MEDS: LORazepam 2 MG/ML SDV IVPUSH ONE (19:03)
[2024-06-22 19:04] LABS: ALANINE AMINOTRANSFERASE,ALT 26 IU/L (14-63); ALBUMIN 3.5 g/dL (3.4-5.0); ALKALINE PHOSPHATASE 88 U/L (46-116); ASPARTATE AMNIOTRANSFERASE,AST 20 IU/L (15-37); BILIRUBIN TOTAL 0.2 mg/dL (0.2-1.0); BLOOD UREA NITROGEN,BUN 29 mg/dL (7.0-18.0); CALCIUM 8.5 mg/dL (8.5-10.1); CARBON DIOXIDE,CO2 24.7 mmol/L (21.0-32.0); CHLORIDE,CL 103 mmol/L (98-107); CREATININE 0.8 mg/dL (0.6-1.0); EST CRCL DRUG DOSING (CG) 58.55 mL/min; GLUCOSE RANDOM 110 mg/dL (74-106); LIPASE 44 U/L (16-77); MAGNESIUM 1.8 mg/dL (1.8-2.4); POTASSIUM,K 3.5 mmol/L (3.5-5.1); PROTEIN TOTAL,TP 7.1 g/dL (6.4-8.2); SODIUM,NA 138 mmol/L (136-145)
[2024-06-22 19:05] LABS: ESTIMATED GFR 86 mL/min (>60)
== END 2024-06-23 01:58 | disposition home or self-care (01) ==
LOC: MW.ED 18:02
DX: R07.89 Other chest pain (principal); I10 Essential (primary) hypertension; E11.9 Type 2 diabetes mellitus without complications; Z91.011 Allergy to milk products; Z79.899 Other long term (current) drug therapy; Z75.8 Other problems related to medical facilities and other health care
CPT/HCPCS: 36415; 71045; 80053; 83690; 83735; 84484; 85025; 87428; 96361; 96374; 99285; A9270; J2060; J7030

== ENCOUNTER 2024-06-25 18:20 | Emergency (ER) | payer OTHER ==
[2024-06-25 19:10] LABS: BASOPHILS ABSOLUTE AUTO 0.07 K/uL (0.00-0.20); BASOPHILS PERCENT AUTO 0.7 % (0.0-1.0); EOSINOPHILS ABSOLUTE AUTO 0.15 K/uL (0.00-0.45); EOSINOPHILS PERCENT AUTO 1.5 % (0.0-6.0); HEMATOCRIT 40.5 % (37.0-47.0); IMMATURE GRAN ABSOLUTE AUTO 0.01 K/uL (0.00-0.05); IMMATURE GRAN PERCENT AUTO 0.1 % (0.0-0.4); LYMPHOCYTES ABSOLUTE AUTO 3.26 K/uL (1.00-4.80); LYMPHOCYTES PERCENT AUTO 32.2 % (24.0-44.0); MEAN CORPUSCULAR HEMOGLOBIN 30.7 pg (28.0-32.0); MEAN CORPUSCULAR HGB CONC 34.6 g/dL (32.0-36.0); MEAN CORPUSCULAR VOLUME 88.8 fL (83.0-99.0); MEAN PLATELET VOLUME 10.6 fL (9.4-12.3); MONOCYTES ABSOLUTE AUTO 0.56 K/uL (0.00-0.80); MONOCYTES PERCENT AUTO 5.5 % (0.0-8.0); NEUTROPHILS ABSOLUTE AUTO 6.06 K/uL (1.80-7.70); PLATELET COUNT,PLT 286 K/uL (150-400); RED BLOOD CELL COUNT 4.56 M/uL (4.10-5.30); WHITE BLOOD CELL COUNT,WBC 10.11 K/uL (3.9-11.3)
[2024-06-25] MEDS ORDERED: Sodium Chloride 0.9% 10 ML Syringe FLUSH PRN (19:14)
[2024-06-25] MEDS ORDERED: Sodium Chloride 0.9% 2.5 ML Syringe FLUSH PRN (19:14)
[2024-06-25] MEDS ORDERED: Sodium Chloride 0.9% 20 ML SDV IV PRN (19:14)
[2024-06-25 19:34] LABS: A/G RATIO 0.9 (0.9-1.6); ALBUMIN 3.6 g/dL (3.4-5.0); BILIRUBIN TOTAL 0.3 mg/dL (0.2-1.0); CALCIUM 9.2 mg/dL (8.5-10.1); CARBON DIOXIDE,CO2 23.4 mmol/L (21.0-32.0); CREATININE 0.8 mg/dL (0.6-1.0); EST CRCL DRUG DOSING (CG) 58.55 mL/min; POTASSIUM,K 3.7 mmol/L (3.5-5.1); PROTEIN TOTAL,TP 7.7 g/dL (6.4-8.2)
== END 2024-06-25 22:56 | disposition home or self-care (01) ==
LOC: MW.ED 18:20
DX: R07.89 Other chest pain (principal); I10 Essential (primary) hypertension; E11.9 Type 2 diabetes mellitus without complications; Z91.011 Allergy to milk products; Z79.899 Other long term (current) drug therapy
CPT/HCPCS: 36415; 71046; 71046-26; 80053; 82947; 84484; 85025; 93005; 99285

== ENCOUNTER 2024-06-29 18:27 | Emergency (ER) | payer OTHER ==
[2024-06-29 19:54] LABS: BASOPHILS ABSOLUTE AUTO 0.08 K/uL (0.00-0.20); BASOPHILS PERCENT AUTO 0.8 % (0.0-1.0); EOSINOPHILS ABSOLUTE AUTO 0.17 K/uL (0.00-0.45); EOSINOPHILS PERCENT AUTO 1.7 % (0.0-6.0); HEMATOCRIT 39.9 % (37.0-47.0); HEMOGLOBIN 13.9 g/dL (12.0-16.0); IMMATURE GRAN ABSOLUTE AUTO 0.02 K/uL (0.00-0.05); IMMATURE GRAN PERCENT AUTO 0.2 % (0.0-0.4); LYMPHOCYTES ABSOLUTE AUTO 3.29 K/uL (1.00-4.80); LYMPHOCYTES PERCENT AUTO 32.7 % (24.0-44.0); MEAN CORPUSCULAR HEMOGLOBIN 31.2 pg (28.0-32.0); MEAN CORPUSCULAR HGB CONC 34.8 g/dL (32.0-36.0); MEAN CORPUSCULAR VOLUME 89.5 fL (83.0-99.0); MEAN PLATELET VOLUME 10.5 fL (9.4-12.3); MONOCYTES ABSOLUTE AUTO 0.54 K/uL (0.00-0.80); MONOCYTES PERCENT AUTO 5.4 % (0.0-8.0); NEUTROPHILS ABSOLUTE AUTO 5.97 K/uL (1.80-7.70); NEUTROPHILS PERCENT AUTO 59.2 % (41.0-71.0); PLATELET COUNT,PLT 264 K/uL (150-400); RED BLOOD CELL COUNT 4.46 M/uL (4.10-5.30); WHITE BLOOD CELL COUNT,WBC 10.07 K/uL (3.9-11.3)
[2024-06-29 20:15] LABS: A/G RATIO 0.9 (0.9-1.6); ALANINE AMINOTRANSFERASE,ALT 30 IU/L (14-63); ALBUMIN 3.5 g/dL (3.4-5.0); ALKALINE PHOSPHATASE 93 U/L (46-116); ASPARTATE AMNIOTRANSFERASE,AST 22 IU/L (15-37); BILIRUBIN TOTAL 0.3 mg/dL (0.2-1.0); BLOOD UREA NITROGEN,BUN 26 mg/dL (7.0-18.0); CALCIUM 8.7 mg/dL (8.5-10.1); CARBON DIOXIDE,CO2 25.4 mmol/L (21.0-32.0); CHLORIDE,CL 102 mmol/L (98-107); CREATININE 0.8 mg/dL (0.6-1.0); GLUCOSE RANDOM 110 mg/dL (74-106); POTASSIUM,K 3.8 mmol/L (3.5-5.1); PROTEIN TOTAL,TP 7.5 g/dL (6.4-8.2); SODIUM,NA 136 mmol/L (136-145)
[2024-06-29 20:17] LABS: ESTIMATED GFR 86 mL/min (>60)
== END 2024-06-29 21:22 | disposition home or self-care (01) ==
LOC: MW.ED 18:27
DX: I10 Essential (primary) hypertension (principal); E11.9 Type 2 diabetes mellitus without complications; Z91.011 Allergy to milk products; Z79.899 Other long term (current) drug therapy; Z75.8 Other problems related to medical facilities and other health care
CPT/HCPCS: 36415; 80053; 85025; 87428-QW; 93005; 99283

== ENCOUNTER 2024-07-10 01:16 | Emergency (ER) | payer OTHER | END 2024-07-10 02:16 | disposition home or self-care (01) | LOC: MW.ED 01:16 | DX: E11.649 Type 2 diabetes mellitus with hypoglycemia without coma (principal); I10 Essential (primary) hypertension; Z79.899 Other long term (current) drug therapy; Z91.011 Allergy to milk products | CPT/HCPCS: 82947; 99284 ==

== ENCOUNTER 2024-07-18 18:02 | Emergency (ER) | payer OTHER ==
[2024-07-18] MEDS ORDERED: Sodium Chloride 0.9% 10 ML Syringe FLUSH PRN (18:17)
[2024-07-18] MEDS ORDERED: Sodium Chloride 0.9% 2.5 ML Syringe FLUSH PRN (18:17)
[2024-07-18 18:47] LABS: BASOPHILS ABSOLUTE AUTO 0.05 K/uL (0.00-0.20); BASOPHILS PERCENT AUTO 0.6 % (0.0-1.0); EOSINOPHILS PERCENT AUTO 1.1 % (0.0-6.0); HEMATOCRIT 40.6 % (37.0-47.0); HEMOGLOBIN 14.2 g/dL (12.0-16.0); IMMATURE GRAN ABSOLUTE AUTO 0.01 K/uL (0.00-0.05); IMMATURE GRAN PERCENT AUTO 0.1 % (0.0-0.4); LYMPHOCYTES ABSOLUTE AUTO 2.57 K/uL (1.00-4.80); LYMPHOCYTES PERCENT AUTO 28.4 % (24.0-44.0); MEAN CORPUSCULAR HEMOGLOBIN 31.3 pg (28.0-32.0); MEAN CORPUSCULAR VOLUME 89.4 fL (83.0-99.0); MONOCYTES PERCENT AUTO 5.5 % (0.0-8.0); NEUTROPHILS ABSOLUTE AUTO 5.82 K/uL (1.80-7.70); NEUTROPHILS PERCENT AUTO 64.3 % (41.0-71.0); PLATELET COUNT,PLT 256 K/uL (150-400); RED BLOOD CELL COUNT 4.54 M/uL (4.10-5.30); WHITE BLOOD CELL COUNT,WBC 9.05 K/uL (3.9-11.3)
[2024-07-18 19:00] LABS: A/G RATIO 0.9 (0.9-1.6); ALANINE AMINOTRANSFERASE,ALT 36 IU/L (14-63); ALBUMIN 3.8 g/dL (3.4-5.0); ALKALINE PHOSPHATASE 98 U/L (46-116); ASPARTATE AMNIOTRANSFERASE,AST 26 IU/L (15-37); BILIRUBIN TOTAL 0.4 mg/dL (0.2-1.0); BLOOD UREA NITROGEN,BUN 17 mg/dL (7.0-18.0); CALCIUM 8.9 mg/dL (8.5-10.1); CREATININE 0.9 mg/dL (0.6-1.0); EST CRCL DRUG DOSING (CG) 52.04 mL/min; GLUCOSE RANDOM 101 mg/dL (74-106)
[2024-07-18 19:02] LABS: ESTIMATED GFR 75 mL/min (>60)
[2024-07-18 19:06] LABS: CARBON DIOXIDE,CO2 21.9 mmol/L (21.0-32.0); CHLORIDE,CL 98 mmol/L (98-107); POTASSIUM,K 3.7 mmol/L (3.5-5.1); SODIUM,NA 133 mmol/L (136-145)
== END 2024-07-18 21:35 | disposition home or self-care (01) ==
LOC: MW.ED 18:02
DX: R07.89 Other chest pain (principal); I10 Essential (primary) hypertension; E11.9 Type 2 diabetes mellitus without complications; Z91.011 Allergy to milk products; Z91.048 Other nonmedicinal substance allergy status; Z79.899 Other long term (current) drug therapy; Z75.8 Other problems related to medical facilities and other health care
CPT/HCPCS: 36415; 71046; 71046-26; 80053; 84484; 85025; 93005; 93010; 99284; 99285

== ENCOUNTER 2024-07-19 07:16 | Day surgery (SDC) | payer OTHER ==
[~2024-07-19 07:16] MED LIST: Sodium Chloride 0.9% 10 ML Syringe FLUSH PRN; Sodium Chloride 0.9% 2.5 ML Syringe FLUSH PRN; Sodium Chloride 0.9% 20 ML SDV IV PRN
[2024-07-19] MEDS: Lactated Ringers 1,000 ML IV SCH (07:35)
[2024-07-19] MEDS ORDERED: propofoL 500 MG/50 ML 50 ML ONE (08:03)
[2024-07-19] MEDS ORDERED: Lidocaine 2% 5 ML SDV ONE (08:04)
== END 2024-07-19 10:03 | disposition home or self-care (01) ==
LOC: MW.SDS 07:16
PROVIDERS: ATTEND Surgery
DX: D12.5 Benign neoplasm of sigmoid colon (principal); R19.4 Change in bowel habit; K31.89 Other diseases of stomach and duodenum; K21.00 Gastro-esophageal reflux disease with esophagitis, without bleeding; I10 Essential (primary) hypertension; E11.9 Type 2 diabetes mellitus without complications; Z91.09 Other allergy status, other than to drugs and biological substances; Z91.011 Allergy to milk products; Z79.899 Other long term (current) drug therapy
CPT/HCPCS: 43239; 45380; 45385; J2704; J7120; 00813; J3490

== ENCOUNTER 2024-07-26 06:32 | Day surgery (SDC) | payer OTHER ==
[~2024-07-26 06:32] MED LIST changes: +ceFAZolin 2 GM in Sodium Chloride 0.9% 50 ML IV ONE
[2024-07-26] MEDS: Lactated Ringers 1,000 ML IV SCH (07:00)
[2024-07-26] MEDS ORDERED: Bupivacaine 0.5% 30 ML SDV ONE (07:14)
[2024-07-26] MEDS ORDERED: dexmedeTOMIDine HCl 200 MCG/2 ML SDV ONE (07:19)
[2024-07-26] MEDS ORDERED: Ropivacaine 0.5% 5 MG/ML 30 ML SDV ONE (07:20)
[2024-07-26] MEDS ORDERED: Sodium Chloride 0.9% 20 ML ONE (07:20)
[2024-07-26] MEDS ORDERED: fentaNYL 100 MCG/2 ML SDV ONE (07:23)
[2024-07-26] MEDS ORDERED: Propofol 200 MG/20 ML SDV ONE (07:23)
[2024-07-26] MEDS ORDERED: Midazolam 1 MG/ML 2 ML SDV ONE (07:23)
[2024-07-26] MEDS ORDERED: Lidocaine 2% 5 ML SDV ONE (07:25)
[2024-07-26] MEDS ORDERED: Naloxone 0.4 MG/ML SDV IVPUSH PRN (07:32)
[2024-07-26] MEDS ORDERED: Phenylephrine HCl In 0.9% NaCl 1 MG/10 ML Syringe IVPUSH PRN (07:32)
[2024-07-26] MEDS ORDERED: fentaNYL 50 MCG/ML SDV IVPUSH PRN (07:32)
[2024-07-26] MEDS ORDERED: Albuterol 0.083% 2.5 MG/3 ML Neb Soln NEB PRN (07:32)
[2024-07-26] MEDS ORDERED: Morphine 2 MG/ML SYRINGE IVPUSH PRN (07:32)
[2024-07-26] MEDS ORDERED: Rocuronium 100 MG/10 ML MDV ONE (07:41)
[2024-07-26] MEDS ORDERED: Glycopyrrolate 0.2 MG/ML SDV ONE (08:18)
[2024-07-26] MEDS ORDERED: ePHEDrine 50 MG/ML SDV ONE (08:18)
[2024-07-26] MEDS ORDERED: ceFAZolin 1 GM Vial ONE (08:24)
[2024-07-26] MEDS ORDERED: Ondansetron 4 MG/2 ML SDV ONE (09:03)
[2024-07-26] MEDS ORDERED: Sugammadex Sodium 200 MG/2 ML VIAL IV ONE (09:03)
[2024-07-26] MEDS ORDERED: Ketorolac 30 MG/ML SDV ONE (09:03)
[2024-07-26] MEDS: Ondansetron 4 MG/2 ML SDV IVPUSH PRN (09:50)
[2024-07-26] MEDS: HYDROmorphone 1 MG/ML Syringe IVPUSH PRN (09:50)
[2024-07-26] MEDS: Metoclopramide 10 MG/2 ML SDV IVPUSH PRN (10:09)
== END 2024-07-26 11:27 | disposition home or self-care (01) ==
LOC: MW.SDS 06:32
PROVIDERS: ATTEND Surgery
DX: K80.12 Calculus of gallbladder with acute and chronic cholecystitis without obstruction (principal); I10 Essential (primary) hypertension; E11.9 Type 2 diabetes mellitus without complications; F17.210 Nicotine dependence, cigarettes, uncomplicated; Z79.899 Other long term (current) drug therapy; Z91.011 Allergy to milk products; Z91.048 Other nonmedicinal substance allergy status
CPT/HCPCS: 47562; 64488; J0131; J0665; J0690; J1171; J1596; J1885; J2250; J2405; J2704; J2765; J2795; J3010; J7120; 00790; 64486; J3490

== ENCOUNTER 2024-07-28 19:33 | Emergency (ER) | payer OTHER ==
[2024-07-28] MEDS: Ondansetron 4 MG Tab.DIS PO STA (21:02)
== END 2024-07-28 21:56 | disposition home or self-care (01) ==
LOC: MW.ED 19:33
DX: R11.0 Nausea (principal); I10 Essential (primary) hypertension; E11.9 Type 2 diabetes mellitus without complications; Z91.018 Allergy to other foods; Z91.011 Allergy to milk products; Z75.3 Unavailability and inaccessibility of health-care facilities; Z79.899 Other long term (current) drug therapy; Z90.49 Acquired absence of other specified parts of digestive tract
CPT/HCPCS: 99283; A9270